=== PATIENT | male | born 1995 | race Two or more races ===

== ENCOUNTER 2024-12-12 21:01 | Emergency (ER) | payer MEDICAID, SELFPAY ==
--- NOTE | 2024-12-12 21:15 | EKG_ITS ---
[facility] Test Date: 2024-12-12 Pat Name: SEAN MESSINA Department: Room: - Gender: Male Sports Reporter: : 1995 Requested By: Flaco Serrano Order Number: [id number] Reading MD: Flaco Serrano Measurements Intervals [place] Rate: 78 P: 64 [place]: 160 QRS: 26 QRSD: 93 T: 42 QT: 347 QTc: 395 Interpretive Statements SINUS RHYTHM INCOMPLETE RIGHT BUNDLE BRANCH BLOCK [90+ ms QRS DURATION, TERMINAL R IN V1/V2, 40+ ms S IN I/aVL/V4/V5/V6] No previous ECG available for comparison /store/S0/[id number]
[2024-12-12 21:19] VITALS: BP 134/72; PULSE 81; RESP 18; TEMP 37; O2SAT 98; BMI 31.0
--- NOTE | 2024-12-12 21:38 | XR_ITS ---
Examination: PA chest single view Technique: Upright PA chest single view Exam date and time: December 12, 2024 20 0127 hrs. Indications: Chest pain shortness of breath today. Findings: Normal heart size Lungs are clear. The osseous structures are intact Impression: No active disease
--- NOTE | 2024-12-12 21:38 | PD.EDRME ---
Rapid Medical Screening Exam RME Arrival date/time: 12/12/24 21:01 29M with history of weekly testosterone injections (low T according to PCP) presents to ED with several days of CP and SOB, as well as intermittent FISHER (none right now). Patient denies URI symptoms. Chief Complaint: Chest Pain Time Seen by Provider: 12/13/24 00:06 Vital signs: Vital Signs Temperature 98.6 F 12/12/24 21:19 Pulse Rate 81 12/12/24 21:19 Respiratory Rate 18 12/12/24 21:19 Blood Pressure 134/72 H 12/12/24 21:19 Pulse Oximetry (%) 98 12/12/24 21:19 Oxygen Delivery Method Room Air 12/12/24 21:19
[2024-12-12 22:04] LABS: Basophils % (Auto) 1 % (0-2.5); Eosinophils # (Auto) 0.1 Thou/mm3 (0.0-0.5); Eosinophils % (Auto) 2 % (0-10); Hematocrit 40.5 % (41.0-53.0); Hemoglobin 14.4 g/dL (13.5-16.0); Immature Granulocytes % (Auto) 0 % (0-0); Immature Granulocytes Auto 0.02 Thou/mm3 (0.00-0.00); Lymphocytes # (Auto) 2.4 Thou/mm3 (1.0-4.8); Lymphocytes % (Auto) 30 % (10-50); Mean Corpuscular HGB Conc 35.6 g/dl (31.0-37.0); Mean Corpuscular Hemoglobin 30.1 pg (25.0-35.0); Mean Corpuscular Volume 85 fL (80-100); Monocytes # (Auto) 0.5 Thou/mm3 (0.0-0.8); Monocytes % (Auto) 6 % (0-12); Neutrophils # (Auto) 4.9 Thou/mm3 (1.8-7.7); Neutrophils % (Auto) 61 % (37-80); Nucleated Red Blood Cell % 0 /100 WBC (0); Platelet Count 176 Thou/mm3 (140-440); Red Blood Count 4.79 Miln/mm3 (4.50-5.90); White Blood Count 7.9 Thou/mm3 (3.8-10.6)
[2024-12-12 22:21] LABS: B-Type Natriuretic Peptide < 20 pg/mL (0-100)
[2024-12-12 22:22] LABS: Alanine Aminotransferase 28 U/L (10-49); Albumin, Serum 4.6 gm/dL (3.5-5.0); Albumin/Globulin Ratio 1.8 (1.2-2.2); Alkaline Phosphatase 66 U/L (46-116); Anion Gap 10 (7-16); Aspartate Amino Transferase 29 U/L (0-34); BUN/Creatinine Ratio 17 Ratio (12-20); Bilirubin,Total 0.6 mg/dL (0.3-1.2); Blood Urea Nitrogen 15 mg/dL (9-23); Calcium 9.9 mg/dL (8.3-10.6); Calcium (Corrected) 9.9 mg/dL (8.5-10.1); Chloride 105 mMol/L (98-107); Creatinine (Component) 0.9 mg/dL (0.6-1.3); Estimated Creatinine Clearance 118.2 mL/min (>60); Globulin 2.6 gm/dL (2.3-3.5); Glucose 105 mg/dL (74-106); Osmolality,Calculated 283 (275-295); Potassium 3.6 mMol/L (3.4-5.1); Sodium 142 mMol/L (136-145); Total Protein 7.2 gm/dL (5.7-8.2); Troponin I < 0.020 ng/mL (0.0-0.045); eGFR > 60 See Note
[2024-12-12 22:30] LABS: Amphetamine/Methamp Scrn,U Negative (Negative); Barbiturate Screen,Urine Negative (Negative); Benzodiazepines Screen,Urine Negative (Negative); Benzoylecgonine Screen, Ur Negative (Negative); Fentanyl Screen,Urine Negative (Negative); Opiate Screen,Urine Negative (Negative); THC Screen,Urine Negative (Negative)
--- NOTE | 2024-12-13 00:07 | PD.EDCHEST ---
ED Chest Pain RME/HPI General Chief Complaint: Chest Pain Stated Complaint: Strange Pain on Left Chest/ RIght side FISHER Time Seen by Provider: 12/13/24 00:06 Arrival date/time: 12/12/24 21:01 29M with history of weekly testosterone injections (low T according to PCP) presents to ED with several days of CP and SOB, as well as intermittent FISHER (none right now). Patient denies URI symptoms. Patient states he works out a lot. Limitations: no limitations RME / HPI RME / HPI narrative: 12/12/24 21:01 Related Data Previous Rx's ?Medication ?Instructions ?Recorded acetaminophen 500 mg capsule 1,000 mg (2 x 500 mg) PO Q8HR PRN 10/25/21 pain #60 caps azithromycin 500 mg tablet See Rx Instructions PO .COMPLEX #6 10/25/21 tabs promethazine-DM 6.25 mg-15 mg/5 mL 5 ml PO Q6H PRN cough #473 mL 10/25/21 oral syrup docusate sodium 100 mg capsule 100 mg PO QDAY #10 caps 03/09/22 hydrocortisone acetate 25 mg 25 mg [place] BID #24 ea 03/09/22 rectal suppository (Anusol-HC) Allergies Allergy/AdvReac Type Severity Reaction Status Date / Time No Known Allergies Allergy Verified 03/09/22 14:58 Review of Systems Review of Systems Systems Reviewed: All systems reviewed, normal except as documented Constitutional Constitutional: Reports system reviewed and no additional complaints, except as documented, Denies fever(s) and Denies headache(s) ENT Ears, Nose, Mouth, and Throat: Denies disequilibrium and Denies headache(s) Cardiovascular Cardiovascular: Reports system reviewed and no additional complaints, except as documented, Reports as per HPI, Reports chest pain and Reports dyspnea Respiratory Respiratory: Reports system reviewed and no additional complaints, except as documented, Reports as per HPI and Reports dyspnea Gastrointestinal Gastrointestinal: Reports system reviewed and no additional complaints, except as documented, Denies abdominal pain, Denies nausea and Denies vomiting Neurologic Neurologic: Reports system reviewed and no additional complaints, except as documented, Denies confusion, Denies disequilibrium and Denies headache(s) Psychiatric Psychiatric: Denies confusion Past Medical History Past Medical History CARDIAC: Negative Cardiac Disorders or Congestive Heart Failure RESPIRATORY: Negative Chronic Obstructive Pulmonary Disease (COPD) or Asthma GENITOURINARY: Negative Renal Disease ENDOCRINE: Negative Diabetes Mellitus Type 1 or Diabetes Mellitus Type 2 HEMATOLOGIC: Negative Sickle Cell Disease Social History SMOKING STATUS: Never smoker SUBSTANCE USE: does not use ED Exam General Limitations: Present no limitations General appearance: Present alert and in no apparent distress Head Head exam: Present atraumatic Eye Eye exam: Present normal appearance, PERRL and EOMI ENT ENT exam: Present normal exam, normal oropharynx and mucous membranes moist Neck Neck exam: Present normal inspection, full ROM and trachea midline Chest Chest inspection: Present symmetric chest wall rise and tenderness (mild) Respiratory Respiratory exam: Present normal lung sounds bilaterally Cardiovascular Cardiovascular exam: Present regular rate, normal rhythm and normal heart sounds Abdominal Exam Abdominal exam: Present soft and normal bowel sounds Extremities Exam Extremities exam: Present normal inspection and full ROM Back Exam Back exam: Present normal inspection and full ROM Neurological Exam Neurological exam: Present alert, oriented X3 and CN II-XII intact Psychiatric Psychiatric exam: Present normal affect and normal mood Skin Skin exam: Present warm, dry, intact and normal color Course Quality Measures none Orders Category Date Time Status EKG (ED ONLY) *Do not use* NOW Care 12/12/24 21:15 Completed EKG (ED Only) Stat Exams 12/12/24 21:15 Draft XR chest 1V portable Stat Exams 12/12/24 21:38 Completed B-Type Natriuretic Peptide Stat Lab 12/12/24 21:42 Completed CBC Stat Lab 12/12/24 21:42 Completed Comprehensive Metabolic Panel Stat Lab 12/12/24 21:42 Completed D-Dimer Stat Lab 12/13/24 00:07 Completed Drug Screen,Urine Stat Lab 12/12/24 22:08 Completed Troponin I Stat Lab 12/12/24 21:42 Completed Troponin I Stat Lab 12/13/24 00:31 Completed Naproxen [Naprosyn] Med 12/13/24 01:08 Discontinued 500 mg PO X1 ONE Vital Signs Vital signs: Vital Signs Temperature 98.6 F 12/12/24 21:19 Pulse Rate 81 12/12/24 21:19 Respiratory Rate 18 12/12/24 21:19 Blood Pressure 134/72 H 12/12/24 21:19 Pulse Oximetry (%) 98 12/12/24 21:19 Oxygen Delivery Method Room Air 12/12/24 21:19 O2 at 98% on RA and WNLs Chest Pain MDM Narrative MDM Narrative:: 29M with history of weekly testosterone injections (low T according to PCP) presents to ED with several days of CP and SOB, as well as intermittent FISHER (none right now). Patient denies URI symptoms. Patient states he works out a lot. Physical exam reveals clear ENT and lungs. RRR. Some chest wall tenderness. Patient is afebrile, calm, and alert. EKG is NSR with incomplete RBB, which is also seen on EKG here from 2021. CXR normal. Normal trop (2x). D-dimer normal. No leukocytosis. CMP unremarkable. Tox screen neg. Pain likely MSK-related. Patient data External records reviewed:: [facility] previous records Clinical information provided by:: patient Social determinants that could affect healthcare access:: none Patient has the following chronic illnesses:: none How is presenting disease/condition affected by chronic disease/condition?: no chronic disease Evaluation data The following diagnostics were reviewed and interpreted by me:: lab results, radiology exam(s) and EKG tracing(s) Lab and/or radiology exams considered but not ordered:: ordered Interpretation Summary: above Medications / Prescriptions Medications or Prescriptions considered but not ordered:: not ordered Medication administrations:: Medication Administration History Discontinued Medications Naproxen (Naproxen 250 Mg Tablet) 500 mg PO X1 ONE Stop: 12/13/24 01:09 Last Admin: 12/13/24 01:11 Dose: 500 mg Documented By: SF n/a Consultations Consultation(s) initiated? (list below): No Diagnosis Chest Pain Differential Diagnosis: fracture of rib, pneumothorax, stable angina, unstable angina pectoris, atypical chest pain, st elevation myocardial infarction, costochondritis, chest pain and biliary colic Most likely diagnosis given after review of the tests above:: atypical chest pain Admission Indicated Admission indicated?: not indicated Admission Request Was there a request for admission?: No Disposition Plan Disposition Plan: Discharge Discharge Attestation Discharge Attestation: The patient and all family members were given an opportunity to ask questions and understood the discharge instructions. Discharge instructions specifically effects, indications for sooner follow up or return to the emergency department, and the expected course of current diagnosis. Patient condition: Stable Discharge Plan Plan Patient Disposition: HOME (Self Care) Disposition Comment: STable Prescriptions/Referrals Prescriptions/Med Rec: No Action promethazine-DM 6.25-15 mg/5 mL syrup 5 ml PO Q6H PRN (Reason: cough) Qty: 473 0RF acetaminophen 500 mg capsule 1,000 mg PO Q8HR PRN (Reason: pain) Qty: 60 0RF azithromycin 500 mg tablet See Rx Instructions .ROUTE .COMPLEX Qty: 6 0RF Rx Instructions: take 500 mg today (day 1), then 250 mg for 4 days (days 2-5) hydrocortisone acetate [Anusol-HC] 25 mg suppository 25 mg [place] BID Qty: 24 0RF docusate sodium 100 mg capsule 100 mg PO QDAY Qty: 10 0RF Referrals: Robert Arthur MD [Primary Care Provider] - In 1 week Problem List Clinical Impression: Atypical chest pain Patient/Caregiver Discharge Instructions Education Materials: ED Chest Pain, Uncertain Cause Additional Instructions: Please follow-up with PCP within 24-48 hours and return immediately if symptoms worsen. If problem persists, recommend outpatient PT and/or MRI follow-up. In the meantime, rest, use ice/heat, and/or compression. Print Language: Cymraes Stand Alone Forms: Patient Portal Info Letter LORI/SPEECH LANGUAGE PATHOLOGIST TRAVEL Supervising Physician LORI/JEWEL Supervising Physician: Dr. Arizmendi
[2024-12-13 00:47] LABS: D-Dimer < 250 ng/mL (<600)
[2024-12-13 01:03] LABS: Troponin I < 0.020 ng/mL (0.0-0.045)
[2024-12-13] MEDS: NAPROXEN 250 MG TABLET 500 MG PO (01:11)
== END 2024-12-13 01:17 | disposition home or self-care (01) ==
PROVIDERS: Physician Assistant; Emergency Provider Emergency Medicine; PCP Family Medicine
DX: R07.89 Other chest pain (principal)
CPT/HCPCS: 36415; 71045; 80053; 80307; 83880; 84484; 85025; 85379; 93005; 99283; A9270

== ENCOUNTER → 2025-06-28 | Outpatient (CLI) | payer MEDICAID, SELFPAY ==
--- NOTE | 2025-06-28 14:30 | XR_ITS ---
Examination: Testicular sonography complete TECHNIQUE: Grayscale sonographic images testes, assessment arterial inflow venous outflow Doppler spectral analysis carful analysis Date and time: June 28, 2025 1418 hours INDICATIONS: Left testicular pain beginning several years ago. FINDINGS: Right testis 4.9 cm epididymis 12 mm. 2 mm epididymal cyst. Arterial flow testicle. No testicular mass Moderate varicocele Mild hydrocele Left testis 4.6 cm epididymis 15 mm Arterial flow testicle. No testicular mass. Moderate varicocele Mild hydrocele IMPRESSION: No testicular torsion or testicular mass Bilateral moderate hydroceles
== END | disposition home or self-care (01) ==
PROVIDERS: PCP Physician Assistant; Referring Provider Physician Assistant; Visit Provider Physician Assistant
DX: N43.3 Hydrocele, unspecified (principal)
CPT/HCPCS: 76870

== ENCOUNTER 2025-10-13 15:24 | Emergency (ER) | payer MEDICAID, SELFPAY ==
[2025-10-13 15:54] VITALS: BP 159/91; PULSE 83; RESP 18; TEMP 36.9; O2SAT 99; BMI 29.6
--- NOTE | 2025-10-13 15:55 | EDNOTE_ITS ---
ED Chest Pain RME/HPI General Chief Complaint: Chest Pain Stated Complaint: C/P X 3 DAYS RADIATES TO LEFT SHOULDER Time Seen by Provider: 10/13/25 15:56 Arrival date/time: 10/13/25 15:24 RME / HPI RME / HPI narrative: See [facility] for Dr. Calzada's HPI documentation. Related Data Previous Rx's ?Medication ?Instructions ?Recorded acetaminophen 500 mg capsule 1,000 mg (2 x 500 mg) PO Q8HR PRN 10/25/21 pain #60 caps azithromycin 500 mg tablet See Rx Instructions PO .COM PLEX #6 10/25/21 tabs promethazine-DM 6.25 mg-15 mg/5 mL 5 ml PO Q6H PRN cou gh #473 mL 10/25/21 oral syrup docusate sodium 100 mg capsule 100 mg PO QDAY #10 caps 03/09/22 hydrocortisone acetate 25 mg 25 mg [place] BID #24 ea 03/09 rectal suppository (Anusol-HC) cyclobenzaprine 5 mg tablet 5 mg PO TID PRN muscle spa sm #15 10/13/25 tabs Allergies Allergy/AdvReac Type Severity Reaction Status Date / Time No Known Allergies Allergy Verified 10/13/25 15:28 Review of Systems Review of Systems Systems Reviewed: All systems reviewed, normal except as documented Past Medical History Past Medical History CARDIAC: Negative Cardiac Disorders or Congestive Heart Failure RESPIRATORY: Negative Chronic Obstructive Pulmonary Disease (COPD) or Asthma GENITOURINARY: Negative Renal Disease ENDOCRINE: Negative Diabetes Mellitus Type 1 or Diabetes Mellitus Type 2 HEMATOLOGIC: Negative Sickle Cell Disease Social History SMOKING STATUS: Never smoker SUBSTANCE USE: does not use ED Exam Narrative Physical exam: See [facility] for Dr. Calzada's physical exam documentation. Course Course Course Narrative: CXR is ordered for determining the etiology of chest pain. Quality Measures none Orders Category Date Time Status EKG (ED ONLY) *Do not use* NOW Care 10/13/25 15:56 Completed EKG (ED Only) Stat Exams 10/13/25 15:56 Draft XR chest 1V portable Stat Exams 10/13/25 15:56 Completed BNP [B-Type Natriuretic Peptide] Stat Lab 10/13/25 16:10 Completed Bilirubin,Direct Stat Lab 10/13/25 16:10 Completed CBC Stat Lab 10/13/25 16:10 Completed CMP [Comprehensive Metabolic Panel] Stat Lab 10/13/25 16:10 Completed D-Dimer Stat Lab 10/13/25 16:10 Completed Magnesium Stat Lab 10/13/25 16:10 Completed TSH [Thyroid Stimulating Hormone] Stat Lab 10/13/25 16:10 Completed Troponin I Stat Lab 10/13/25 16:10 Completed ACETAMINOPHEN w/COD 300-30 [Tylenol w/Cod #3] Med 10/13/25 15:56 Discontinued 2 tab PO X1 ONE CYCLObenzaPRINE [Flexeril] Med 10/13/25 16:14 Discontinued 5 mg PO X1 ONE Vital Signs Vital signs: Vital Signs Temperature 98.4 F 10/13/25 15:54 Pulse Rate 83 10/13/25 15:54 Respiratory Rate 18 10/13/25 15:54 Blood Pressure 159/91 H 10/13/25 15:54 Pulse Oximetry (%) 99 10/13/25 15:54 Oxygen Delivery Method Room Air 10/13/25 15:54 Chest Pain MDM Narrative MDM Narrative:: This section includes all my notes and documentations, including HPI, PE, and ED course. Jose Alejandro Calzada MD HPI: 30-year-old male here with several days of left-sided chest pain. Injects weekly testosterone, for the past several years. Works out regularly. Pain is worse with certain movement and position. No shortness of breath. No unusual malaise or fatigue. No palpitations. No nausea or vomiting. No leg pain or swelling. No other complaints. ROS: All negative except as documented in HPI. Physical Exam: General: Alert and oriented. No acute distress when remaining still. Eyes: Conjunctivae and lids clear. ENT: No nasal congestion. Neck: Supple. Heart: RRR. Lungs: No respiratory distress. Good air movement. No rhonchi, wheezing, rales. Chest: Palpation anteriorly, left of the sternum, reproduces his chest pain. Abdomen: Soft and nontender. Normal bowel sounds. No distension. No rebound or guarding. Back: No CVA tenderness. Skin: Warm and dry. Neuro: Alert and oriented X 3. I reviewed all diagnostic test results: My interpretation of the EKG: NSR (81 bpm) with no ST-T changes. Jose Alejandro Calzada MD My interpretation of the chest x-ray is: NAD. Blood tests are unremarkable. At this point, diagnoses include: Chest wall pain Treatment here included: Cyclobenzaprine 5 mg PO He felt much better. Recommended more outpatient workup. Based on my best medical judgment, made decision no further evaluation or treatment indicated at this time. Patient understands and agrees to the discharge instructions customized and printed, see below. Discharge instructions from Dr. Calzada: 1. After extensive evaluation, there is no life-threatening condition. Such as heart attack or pulmonary embolism (blood clots in your lungs) or pneumothorax (collapsed lung). 2. Your pain is originating from the chest wall and not from an internal organ. The chest wall has many joints and muscles between the ribs, so sprains and strains are common. 3. Apply ice or heat if helpful. Tylenol/ibuprofen as needed. Cyclobenzaprine as needed. 4. See a private doctor on 10/14/2025. To make sure there is no serious underlying heart condition, ask to help you get more tests for your heart that cannot be done here in the ER. Such as Holter Monitor (cardiac monitoring at home from a day to even a month), heart stress test (on treadmill or with medication), echocardiogram (imaging of your heart structures), heart catherization (checking for blockages in your heart arteries), and a referral to see a Gear Hobber Operator. 5. Seek immediate medical care with worsening or with any concerns. Jose Alejandro Calzada MD Patient data External records reviewed:: [facility] previous records (Per chart review, patient was seen here on 12/13/24 for atypical chest pain.) Clinical information provided by:: patient Social determinants that could affect healthcare access:: none Patient has the following chronic illnesses:: none How is presenting disease/condition affected by chronic disease/condition?: no chronic disease Evaluation data The following diagnostics were reviewed and interpreted by me:: lab results, radiology exam(s) and EKG tracing(s) (My interpretation of the EKG: NSR (81 bpm) with no ST-T changes. Jose Alejandro Calzada MD) Lab and/or radiology exams considered but not ordered:: none Interpretation Summary: I reviewed all diagnostic test results: My interpretation of the EKG: NSR (81 bpm) with no ST-T changes. Jose Alejandro Calzada MD My interpretation of the chest x-ray is: NAD. Blood tests are unremarkable. Medications / Prescriptions Medications or Prescriptions considered but not ordered:: none Medication administrations:: Medication Administration History Discontinued Medications Acetaminophen/Codeine Phosphate (Acetaminophen W/Cod 300-30 Tablet) 2 tab PO X1 ONE Stop: 10/13/25 15:57 Last Admin: 10/13/25 16:15 Dose: Not Given Documented By: CHYNA Non-Admin Reason: Patient Refused Cyclobenzaprine HCl (Cyclobenzaprine 5 Mg Tablet) 5 mg PO X1 ONE Stop: 10/13/25 16:15 Last Admin: 10/13/25 16:16 Dose: 5 mg Documented By: CHYNA Treatment here included: Cyclobenzaprine 5 mg PO Consultations Consultation(s) initiated? (list below): No Diagnosis Chest Pain Differential Diagnosis: pneumothorax, stable angina, unstable angina pectoris, atypical chest pain, st elevation myocardial infarction, costochondritis, chest pain and other (Chest wall pain) Most likely diagnosis given after review of the tests above:: Chest wall pain Admission Indicated Admission indicated?: not indicated Explain why admission is indicated or not indicated:: With significant improvement and no condition needing emergent intervention, there was no indication for admission. Admission Request Was there a request for admission?: No Disposition Plan Disposition Plan: Discharge Discharge Attestation Discharge Attestation: The patient and all family members were given an opportunity to ask questions a nd understood the discharge instructions. Discharge instructions specifically effects, indications for sooner follow up or return to the emergency department, and the expected course of current diagnosis. Patient condition: Stable Discharge Plan Plan Patient Disposition: HOME (Self Care) Prescriptions/Referrals Prescriptions/Med Rec: New cyclobenzaprine 5 mg tablet 5 mg PO TID PRN (Reason: muscle spasm) Qty: 15 0RF No Action promethazine-DM 6.25-15 mg/5 mL syrup 5 ml PO Q6H PRN (Reason: cough) Qty: 473 0RF acetaminophen 500 mg capsule 1,000 mg PO Q8HR PRN (Reason: pain) Qty: 60 0RF azithromycin 500 mg tablet See Rx Instructions .ROUTE .COMPLEX Qty: 6 0RF Rx Instructions: take 500 mg today (day 1), then 250 mg for 4 days (days 2-5) hydrocortisone acetate [Anusol-HC] 25 mg suppository 25 mg [place] BID Qty: 24 0RF docusate sodium 100 mg capsule 100 mg PO QDAY Qty: 10 0RF Referrals: Stan Smith PA-C [Primary Care Provider] - In 1 week Problem List Clinical Impression: Chest pain Patient/Caregiver Discharge Instructions Discharge Activity: activity as tolerated Education Materials: ED Chest Pain, Uncertain Cause Additional Instructions: Discharge instructions from Dr. Calzada: 1. After extensive evaluation, there is no life-threatening condition.? Such as heart attack or pulmonary embolism (blood clots in your lungs) or pneumothorax (collapsed lung). 2. Your pain is originating from the chest wall and not from an internal organ.? The chest wall has many joints and muscles between the ribs, so sprains and strains are common.?? 3. Apply ice or heat if helpful.? Tylenol/ibuprofen as needed. Cyclobenzaprine as needed. 4. See a private doctor on 10/14/2025. To make sure there is no serious underlying heart condition, ask to help you get more tests for your heart that cannot be done here in the ER.? Such as Holter Monitor (cardiac monitoring at home from a day to even a month), heart stress test (on treadmill or with medication), echocardiogram (imaging of your heart structures), heart catherization (checking for blockages in your heart arteries), and a referral to see a Gear Hobber Operator.? 5. Seek immediate medical care with worsening or with any concerns.?? Print Language: Bangladeshi Stand Alone Forms: Monica Award Info., Patient Portal Info Letter
--- NOTE | 2025-10-13 15:56 | EKG_ITS ---
[facility] Test Date: 2025-10-13 Pat Name: SEAN MESSINA Department: Room: - Gender: Male Coding Specialist Home Health: : 1995 Requested By: Jose Alejandro Briceño Order Number: [id number] Reading MD: Jose Alejandro Briceño Measurements Intervals [place] Rate: 81 P: 62 MS: 161 QRS: 25 QRSD: 91 T: 24 QT: 342 QTc: 397 Interpretive Statements SINUS RHYTHM Compared to ECG 12/12/2024 21:21:53 Incomplete right bundle-branch block no longer present /store/S0/[id number]
--- NOTE | 2025-10-13 15:56 | XR_ITS ---
EXAMINATION: PA chest single view TECHNIQUE: 1. Upright PA chest single view Date and time: October 13, 2025, 1556 hours, comparison December 12, 2024 INDICATIONS: Shortness of breath chest pain today FINDINGS: Normal heart size The lungs are clear. The osseous structures are intact IMPRESSION: No active disease
[2025-10-13 16:20] LABS: Basophils # (Auto) 0.1 Thou/mm3 (0.0-0.2); Basophils % (Auto) 1 % (0-2.5); Eosinophils # (Auto) 0.1 Thou/mm3 (0.0-0.5); Eosinophils % (Auto) 2 % (0-10); Hematocrit 42.9 % (41.0-53.0); Hemoglobin 14.8 g/dL (13.5-16.0); Immature Granulocytes Auto 0.01 Thou/mm3 (0.00-0.00); Lymphocytes # (Auto) 2.7 Thou/mm3 (1.0-4.8); Lymphocytes % (Auto) 34 % (10-50); Mean Corpuscular HGB Conc 34.5 g/dl (31.0-37.0); Mean Corpuscular Hemoglobin 29.4 pg (25.0-35.0); Mean Corpuscular Volume 85 fL (80-100); Monocytes # (Auto) 0.6 Thou/mm3 (0.0-0.8); Monocytes % (Auto) 7 % (0-12); Neutrophils # (Auto) 4.4 Thou/mm3 (1.8-7.7); Neutrophils % (Auto) 56 % (37-80); Nucleated Red Blood Cell # 0.00 Thou/mm3 (0.00-0.00); Nucleated Red Blood Cell % 0 /100 WBC (0); Platelet Count 178 Thou/mm3 (140-440); RDW Standard Deviation 41.3 fL (35.1-43.9); Red Blood Count 5.04 Miln/mm3 (4.50-5.90); White Blood Count 7.8 Thou/mm3 (3.8-10.6)
[2025-10-13 16:39] LABS: B-Type Natriuretic Peptide < 20 pg/mL (0-100)
[2025-10-13 16:40] LABS: Alanine Aminotransferase 23 U/L (10-49); Albumin, Serum 4.9 gm/dL (3.5-5.0); Albumin/Globulin Ratio 1.8 (1.2-2.2); Alkaline Phosphatase 62 U/L (46-116); Anion Gap 10 (7-16); Aspartate Amino Transferase 23 U/L (0-34); BUN/Creatinine Ratio 16 Ratio (12-20); Bilirubin,Direct 0.3 mg/dL (0.0-0.3); Bilirubin,Total 0.9 mg/dL (0.3-1.2); Blood Urea Nitrogen 14 mg/dL (9-23); Calcium 9.4 mg/dL (8.3-10.6); Calcium (Corrected) 9.4 mg/dL (8.5-10.1); Carbon Dioxide 27.9 mMol/L (20.0-31.0); Chloride 103 mMol/L (98-107); Creatinine (Component) 0.9 mg/dL (0.6-1.3); Estimated Creatinine Clearance 118.5 mL/min (>60); Globulin 2.8 gm/dL (2.3-3.5); Glucose 89 mg/dL (74-106); Magnesium 1.8 mg/dL (1.6-2.6); Osmolality,Calculated 280 (275-295); Potassium 3.7 mMol/L (3.4-5.1); Sodium 141 mMol/L (136-145); Thyroid Stimulating Hormone 1.37 uIU/mL (0.55-4.78); Total Protein 7.7 gm/dL (5.7-8.2); Troponin I < 0.020 ng/mL (0.0-0.045); eGFR > 60 See Note
[2025-10-13 17:07] LABS: D-Dimer < 250 ng/mL (<600)
[2025-10-13 17:24] VITALS: BP 113/70; PULSE 84; RESP 19; TEMP 37; O2SAT 98
== END 2025-10-13 17:25 | disposition home or self-care (01) ==
PROVIDERS: Emergency Provider Emergency Medicine; PCP Physician Assistant
DX: R07.89 Other chest pain (principal); R06.02 Shortness of breath
CPT/HCPCS: 36415; 71045; 80053; 82248; 83735; 83880; 84443; 84484; 85025; 85379; 93005; 99283; A9270